=== PATIENT | female | born 1960 | race Caucasian/White ===

== ENCOUNTER → 2016-04-14 | Outpatient (CLI) | payer BC ==
[~2016-04-14] MED LIST: CALC500T72 PO; CALCIUM 600+D+D PO; DRV100 PO; FISH OI1 PO; MULT-506 PO; PRM/45 PO
--- NOTE | 2016-04-14 13:01 | MAMMOGRAPHY REPORT ---
BILATERAL DIGITAL SCREENING MAMMOGRAM TOMOSYNTHESIS WITH CAD: 04/14/2016 CLINICAL HISTORY: Routine screening. Patient has no complaints. TECHNIQUE: Breast tomosynthesis in addition to standard 2D mammography was performed. A repeat rig ht MLO view was performed secondary to motion and a repeat left CC view was performed for more optim al positioning. Current study was also evaluated with a Computer Aided Detection (CAD) system. COMPARISON: Comparison is made to exams dated: 04/11/2015 mammogram, 04/05/2014 mammogram, and 014 mammogram - [facility]. BREAST COMPOSITION: The tissue of both breasts is heterogeneously dense, which may obscure small ma sses. FINDINGS: The parenchymal pattern is similar to prior mammograms. No new suspicious mass, adobe architect ural distortion or cluster of microcalcifications is seen. IMPRESSION: ACR BI-RADS CATEGORY 1: NEGATIVE There is no mammographic evidence of malignancy. A 1 year screening mammogram is recommended. The p atient has been notified of the results and she will also receive written notification. Approximately 10% of breast cancers are not detected with mammography. A negative mammographic repor t should not delay biopsy if a clinically suggestive mass is present. Josie Caban M.D. ay/:04/14/2016 11:36:00 Merchandise Stocker: Evangelista Saucedo, M, [facility] letter sent: Normal 1/2 BI-RADS Code: ACR BI-RADS Category 1: Negative
== END | disposition home or self-care (01) ==
LOC: C.MAMM 07:30
PROVIDERS: ATTEND Obstetrics & Gynecology
DX: Z12.31 Encounter for screening mammogram for malignant neoplasm of breast (principal)

== ENCOUNTER → 2017-02-18 | Outpatient (CLI) | payer BC ==
[~2017-02-18] MED LIST changes: -CALC500T72 PO; -CALCIUM 600+D+D PO; -DRV100 PO; +LEVO75TA5 PO; +LUTE15CA PO; +MAGN250T3 PO; -PRM/45 PO; +VITAMIN B12 PO; +VITAMIN C PO; +VITAMIN D PO
[2017-02-18 10:05] LABS: BASO % 0.4 %; BASO ABS # 0.02 K/uL (0-0.2); COMPLETE YES; EOS % 5.3 %; HEMATOCRIT 40.7 % (37-47); IG% 0.2 %; LYMPH % 40.4 %; MEAN CELL VOLUME 91.9 fL (80-100); MEAN CORPUSCULAR HEMOGLOBIN 32.7 pg (25-34); MEAN CORPUSCULAR HGB CONC 35.6 g/dl (32-36); MONO % 14.7 %; PLATELET COUNT 190 K/uL (130-400); RED BLOOD COUNT 4.43 M/uL (4.2-5.4); WHITE BLOOD COUNT 4.95 K/uL (4.8-10.8)
[2017-02-18 10:18] LABS: INR 0.9 (0.9-1.1); PROTHROMBIN TIME (PATIENT) 9.9 SECONDS (9.0-12.0)
[2017-02-18 10:27] LABS: POTASSIUM 4.1 mmol/L (3.5-5.1)
== END | disposition home or self-care (01) ==
LOC: C.CPL 09:00
DX: Z01.818 Encounter for other preprocedural examination (principal); I25.2 Old myocardial infarction

== ENCOUNTER → 2017-02-26 | Day surgery (SDC) | payer BC ==
[2017-02-11 13:35] VITALS: Ht 166.4 cm; Wt 84.1 kg
[~2017-02-26] VITALS: Ht 166.4 cm; Wt 84.1 kg
[~2017-02-26] MED LIST changes: +ACETAMINOPHEN 325 MG TAB PO PRN; +ATROPINE SULFATE 0.1 MG/ML 5ML SYR IV PRN; +EpHEDrine SULFATE INJ 50 MG/ML AMP IV PRN; +FENTANYL CITRATE INJ 50 MCG/1 ML 2 ML VIAL IV PRN; +FENTANYL CITRATE INJ 50 MCG/1 ML 2 ML VIAL ONE; +LACTATED RINGER'S 1000ML 1,000 ML IV SCH; +LIDOCAINE HCL 2% 2 ML VIAL (20MG/ML) ONE; +MIDAZOLAM HCL 1 MG/ML 2ML VIAL ONE; +OFLOXACIN 0.3% OP SOLN 5 ML BTL ONE; +ONDANSETRON INJ 2 MG/ML 2 ML VIAL IV PRN; +PROPOFOL IV EMULSION 10 MG/ML 20 ML VIAL IV ONE
--- NOTE | 2017-02-26 12:56 | History & Physical Bridge - SC ---
H&P Re-Evaluation Bridge Note: I have examined the patient, reviewed the History & Physical and in the interval since the performance of the History & Physical I have noted the following changes of clinical significance: No changes noted
--- NOTE | 2017-02-26 13:07 | History and Physical: Surg Cnt ---
History & Physical Date Feb 26, 2017. Chief Complaint RETAINED PIECE OF T-TUBE IN RIGHT MIDDLE EAR SPACE History of Present Illness The patient is a 56 year old female with complaints of RETAINED PIECE OF T-TUBE IN RIGHT MIDDLE EAR SPACE. Past Medical/Surgical History PMH: CHRONIC OTITIS MEDIA/ETD, ECZEMA, EOSINOPHILIA, DYSLIPIDEMIA, HYPOTHYROIDISM, OBESITY, PSORIASIS, SCOLIOSIS, B SNHL, ENDOMETRIOSIS, MIGRAINES , KIDNEY STONES, TERTIARY HPT PSH: S/P R SHOULDER ARTHROSCOPY, DIAGNOSTIC LAPARASCOPY, SUBTOTAL THYROIDECTOMY , T&A, VIVI/BSO, TUBAL LIGATION Additional History Hepatic Disease: No Endocrine Disorder: No Kidney Disease: No Hypertension: No Heart Disease: No Bleeding Tendencies: No Infectious Diseases: No Allergies Coded Allergies: No Known Allergies (Verified , `, 02/26/17) Home Medications Scheduled , 1 CAP PO QPM Levothyroxine Sodium (Levothyroxine Sodium), 1 TAB PO QAM Lutein-Zeaxanthin (Lutein), 1 CAP PO QPM Magnesium (Magnesium 250 mg), 1 TAB PO QPM Multivitamin (Multivitamin), 1 TAB PO QPM [Vitamin B12], 1 TAB PO QPM [Vitamin C], 1 TAB PO QPM [Vitamin D], 1 TAB PO QPM Physical Examination Skin: warm/dry, no rash Eyes: normal inspection, EOMI, sclerae normal ENT: + pertinent finding (PIECE OF T-TUBE BEHIND INTACT R TM) Head: normocephalic, atraumatic Neck: supple, no adenopathy, trachea midline Respiratory/Chest: lungs clear, normal breath sounds, no respiratory distress Cardiovascular: regular rate, rhythm, no edema, no murmur Neurologic/Psych: no motor/sensory deficits, alert, normal reflexes, oriented x 3 Diagnosis RETAINED PIECE OF T-TUBE IN RIGHT MIDDLE EAR SPACE Plan of Treatment RIGHT MYRINGOTOMY AND REMOVAL OF FOREIGN BODY FROM MIDDLE EAR SPACE
--- NOTE | 2017-02-26 13:21 | [facility] Operative Report ---
Operative Report Operative Date Feb 26, 2017. Pre-Operative Diagnosis RETAINED PIECE OF T-TUBE IN RIGHT MIDDLE EAR SPACE Post-Operative Diagnosis SAME ABOVE Procedure(s) Performed RIGHT MYRINGOTOMY AND REMOVAL OF FOREIGN BODY Surgeon HUEY Ignition Expert Surgeon(s) NONE Estimated Blood Loss 0 Findings PIECE OF T-TUBE IN RIGHT MIDDLE EAR SPACE BEHIND INTACT TM Specimens NONE I attest to the content of the Intraoperative Record and any orders documented therein. Any exceptions are noted below.
--- NOTE | 2017-02-26 13:23 | Discharge Instructions ---
Discharge Instructions Date of Service Feb 26, 2017. Admission Reason for Admission: Right Middle Ear Fb, Sequela-T Discharge Discharge Diagnosis / Problem: SAME Discharge Goals Goal(s): Therapeutic intervention Activity Recommendations Activity Limitations: as noted below DRY RIGHT EAR PRECAUTIONS UNTIL FOLLOW UP; NO NOSE BLOWING FOR 2 WEEKS; SNEEZE WITH MOUTH OPEN FOR 2 WEEKS . Current Hospital Diet Patient's current hospital diet: Discharge Diet Recommended Diet: Regular Diet Procedures Procedures Performed: RIGHT MYRINGOTOMY AND REMOVAL OF FOREIGN BODY Pending Studies Studies pending at discharge: no Medical Emergencies . Who to Call and When: Medical Emergencies: If at any time you feel your situation is an emergency, please call 911 immediately. . Non-Emergent Contact Non-Emergency issues call your: Surgeon . . "Provider Documentation" section prepared by Gabino Jean Baptiste. . VTE Core Measure Inpt VTE Proph given/why not?: SCD's
[2017-02-26 14:03] VITALS: TEMP 36.7
--- NOTE | 2017-02-26 14:10 | Anesthesia Progress Nt - [facility] ---
Anesthesia Post Op Note Date & Time Feb 26, 2017 at 14:10 Vital Signs Pain Intensity: 0 Vital Signs Past 12 Hours Date Time Temp Pulse Resp B/P (MAP) Pulse Ox O2 Delivery O2 Flow Rate FiO2 02/26/17 14:03 36.7 73 16 126/75 (92) 97 Room Air 02/26/17 13:52 84 20 02/26/17 13:52 36.6 80 16 116/84 97 Room Air 02/26/17 13:52 84 20 98 02/26/17 13:51 116/84 02/26/17 13:47 79 15 99 02/26/17 13:47 81 15 02/26/17 13:46 127/75 02/26/17 13:42 74 13 100 02/26/17 13:42 72 13 02/26/17 13:41 125/75 02/26/17 13:37 76 20 02/26/17 13:37 76 20 100 02/26/17 13:36 109/81 02/26/17 13:32 109 21 100 02/26/17 13:32 85 21 02/26/17 13:31 117/69 02/26/17 13:28 103/75 02/26/17 13:27 88 20 103/75 100 Mask 6 02/26/17 13:27 88 100 02/26/17 13:27 88 02/26/17 10:37 36.5 83 18 145/64 (91) 97 Room Air Notes Mental Status: alert / awake / arousable, participated in evaluation Pt Amnestic to Procedure: Yes Nausea / Vomiting: adequately controlled Pain: adequately controlled Airway Patency, RR, SpO2: stable & adequate BP & HR: stable & adequate Hydration State: stable & adequate Anesthetic Complications: no major complications apparent
[2017-02-26 14:23] VITALS: BP 145/84; PULSE 69; O2SAT 100
--- NOTE | 2017-02-26 14:26 | OPERATIVE REPORT ---
DATE OF OPERATION: 02/26/2017 PREOPERATIVE DIAGNOSIS: Retained piece of T-tube within the right middle ear space behind an intact tympanic membrane. POSTOPERATIVE DIAGNOSIS: Same. PROCEDURE: Right myringotomy and removal of middle ear foreign body. SURGEON: Dr. Jean Baptiste. ANESTHESIA: General mass with IV sedation. ESTIMATED BLOOD LOSS: Zero. FINDINGS: A piece of T-tube within the right middle ear space. SPECIMENS: None. COMPLICATIONS: None. INDICATIONS FOR THE PROCEDURE: The patient is a 56-year-old female who underwent bilateral myringotomy and tube placement with T-tubes by Dr. Wellington in the past, whose tube had extruded, but interestingly a piece of the T-tube was retained within the middle ear space behind an intact tympanic membrane. It was recommended that she undergo right myringotomy with removal of right middle ear foreign body. The patient presents for the above-mentioned procedure on an outpatient elective basis. DESCRIPTION OF PROCEDURE: After informed consent had been obtained from the patient, the patient was wheeled to the operating room and placed on the operating table in a supine position. Monitors were placed. After induction of general anesthesia via mask induction along with IV sedation, the patient's head was gently turned to the left and a speculum was inserted into the right external auditory canal. The operating microscope was wheeled in and used to perform the procedure. Myringotomy knife was used to make a radial incision in the anterior inferior quadrant of the tympanic membrane and an empty alligator forceps was used to remove the piece of the T-tube that was retained within the middle ear space. Floxin drops were then instilled into the middle ear space and external auditory canal and a cotton ball was placed into the conchal bowl. This marked the end of the case. The patient tolerated the procedure well with no apparent complications. The patient was transferred to the recovery room in stable condition. I attest to the content of the Intraoperative Record and any orders documented therein. Any exception s are noted below.
== END | disposition home or self-care (01) ==
LOC: X.SURG 10:24
DX: T16.9XXA Foreign body in ear, unspecified ear, initial encounter (principal); Y83.1 Surgical operation with implant of artificial internal device as the cause of abnormal reaction of the patient, or of later complication, without mention of misadventure at the time of the procedure; E66.9 Obesity, unspecified; M19.90 Unspecified osteoarthritis, unspecified site; E78.5 Hyperlipidemia, unspecified; E03.9 Hypothyroidism, unspecified; Z98.890 Other specified postprocedural states; Z98.51 Tubal ligation status; Z90.89 Acquired absence of other organs

== ENCOUNTER → 2017-04-23 | Outpatient (CLI) | payer BC ==
[~2017-04-23] MED LIST changes: -ACETAMINOPHEN 325 MG TAB PO PRN; -ATROPINE SULFATE 0.1 MG/ML 5ML SYR IV PRN; -EpHEDrine SULFATE INJ 50 MG/ML AMP IV PRN; -FENTANYL CITRATE INJ 50 MCG/1 ML 2 ML VIAL IV PRN; -FENTANYL CITRATE INJ 50 MCG/1 ML 2 ML VIAL ONE; -LACTATED RINGER'S 1000ML 1,000 ML IV SCH; -LIDOCAINE HCL 2% 2 ML VIAL (20MG/ML) ONE; -MIDAZOLAM HCL 1 MG/ML 2ML VIAL ONE; -OFLOXACIN 0.3% OP SOLN 5 ML BTL ONE; -ONDANSETRON INJ 2 MG/ML 2 ML VIAL IV PRN; -PROPOFOL IV EMULSION 10 MG/ML 20 ML VIAL IV ONE
--- NOTE | 2017-04-26 15:40 | MAMMOGRAPHY REPORT ---
BILATERAL DIGITAL SCREENING MAMMOGRAM TOMOSYNTHESIS WITH CAD: 04/23/2017 CLINICAL HISTORY: Routine screening. TECHNIQUE: Breast tomosynthesis in addition to standard 2D mammography was performed. Current study was also evaluated with a Computer Aided Detection (CAD) system. COMPARISON: Comparison is made to exams dated: 04/14/2016 mammogram, 04/17/2015 mammogram, 04/11/2015 m ammogram, 04/05/2014 mammogram, 04/03/2013 mammogram, and 03/30/2012 mammogram - [facility]ter. BREAST COMPOSITION: The tissue of both breasts is heterogeneously dense, which may obscure small mas ses. FINDINGS: No suspicious masses, calcifications, or areas of architectural distortion are noted in ei ther breast. There has been no significant interval change compared to prior exams. IMPRESSION: ACR BI-RADS CATEGORY 1: NEGATIVE There is no mammographic evidence of malignancy. A 1 year screening mammogram is recommended. The pa tient will receive written notification of the results. Approximately 10% of breast cancers are not detected with mammography. A negative mammographic report should not delay biopsy if a clinically suggestive mass is present. Beata Matthews M.D. ah/:04/23/2017 15:30:24 Reading Tutor: Nelida YAN(Evangelista)(Mack), [facility] letter sent: Normal 1/2 BI-RADS Code: ACR BI-RADS Category 1: Negative
== END | disposition home or self-care (01) ==
LOC: C.MAMM 10:54
PROVIDERS: ATTEND Obstetrics & Gynecology
DX: Z12.31 Encounter for screening mammogram for malignant neoplasm of breast (principal)